=== PATIENT | female | born 1995 | race Caucasian/White ===

== ENCOUNTER 2024-12-01 09:04 | Outpatient (REF) | payer OTHER, SELFPAY ==
--- OUTSIDE RECORDS SUMMARY | 2024-12-01 09:27 | XMS_ITS ---
Author Organization [facility] Address [address] [place] [address] Care Team Providers Care Manager Clinical Research Name Role Phone Solange Kurtz Primary Care Provider Bryan Mccurdy [phone] REASON FOR VISIT humira enrollment/biosimilar ok? Medications Medication SIG (Take, Route, Frequency, Duration) Notes Start Date End Date Status Hyrimoz 40 MG/0.4ML 1 injection starting 2 weeks after you finish the starter kit Subcutaneous Every 2 weeks for 28 days All of these should be the Citrate-free variety. Thanks 06/03/2024 Active Hyrimoz-Crohns/UC Starter 80 MG/0.8ML Take 1 injection on Day #1, 1 injection on Day #2, and 1 injection on Day #15 Subcutaneous 1 injection on Day #1, Day #2, and Day #15 for 3 days All of these should be the Citrate-free variety. Thanks 06/03/2024 Active Encounters Encounter Location Date Provider Diagnosis [facility] [address] [place] [phone] 05/25/2024 Bryan Baxter Plan Of Treatment Medication Medication Name Sig Start Date Stop Date Notes Hyrimoz 40 MG/0.4ML 1 injection starting 2 weeks after you finish the starter kit Subcutaneous Every 2 weeks for 28 days 06/03/2024 All of these should be the Citrate-free variety. Thanks Hyrimoz-Crohns/UC Starter 80 MG/0.8ML Take 1 injection on Day #1, 1 injection on Day #2, and 1 injection on Day #15 Subcutaneous 1 injection on Day #1, Day #2, and Day #15 for 3 days 06/03/2024 All of these should be the Citrate-free variety. Thanks Next Appt Details Provider Name:Bryan Baxter , 05/26/2025 02:00:00 PM, [address] [place] [address], [address], [place], [address], Progress Notes * TINY WOOD PDOB:1994 (28 yo F)Acc No.[id number]:05/25/2024 Patient:?TINY WOOD P :1995???Age:28 Y???Sex:Female Address:[address] [place] [address] , [place], [address] * Refills? Start Hyrimoz-Crohns/UC Starter Solution Auto-injector, 80 MG/0.8ML, Subcutaneous, 1 Kit, Take 1 injection on Day #1, 1 injection on Day #2, and 1 injection on Day #15, 1 injection on Day #1, Day #2, and Day #15, 3 days, Refills=0 Start Hyrimoz Solution Auto-injector, 40 MG/0.4ML, Subcutaneous, 2, 1 injection starting 2 weeks after you finish the starter kit, Every 2 weeks, 28 days, Refills=11 Subjective: * Chief Complaints: * ???Humira enrollment/biosimi lar ok? * Medical History:? * Surgical History:? * Hospitalization/Major Diagno stic Procedure:? * Medications:? Objective: Assessment: Plan: * Treatment: * Procedure Codes:? * true * Date:? Generated for Julia rosales/Any/eTransmitting on:?12/01/2024 09:26 AM EDT
--- OUTSIDE RECORDS SUMMARY | 2024-12-01 09:27 | XMS_ITS ---
Author Organization [facility] Address [address] [place] [address] Care Team Providers Care Radio Officer Name Role Phone Solange Kurtz Primary Care Provider Bryan Mccurdy [phone] Allergies No Known Allergies REASON FOR VISIT crohn's Medications Medication SIG (Take, Route, Frequency, Duration) Notes Start Date End Date Status Tri-Linyah 0.18/0.215/0.25 MG-35 MCG 1 tablet Orally Once a day Active Multivitamin Adult - as directed Orally once a day Active Iron (Ferrous Sulfate) 325 (65 Fe) MG 1 tablet Orally Three times a Week for 30 day(s) Active Calcium + D Active Vitamin B12 1000 MCG 1 tablet Orally three times a week Active Hyrimoz-Crohns/UC Starter 80 MG/0.8ML Take 1 injection on Day #1, 1 injection on Day #2, and 1 injection on Day #15 Subcutaneous 1 injection on Day #1, Day #2, and Day #15 for 3 days All of these should be the Citrate-free variety. Thanks 06/03/2024 Active Hyrimoz 40 MG/0.4ML 1 injection starting 2 weeks after you finish the starter kit Subcutaneous Every 2 weeks for 28 days All of these should be the Citrate-free variety. Thanks 06/03/2024 Active Mesalamine ER 500 MG TAKE 2 CAPSULES BY MOUTH 4 TIMES A DAY 90 DAYS for 90 She has been off of this since August 2024 as it has been on backorder at the pharmacy Active Pentasa 500 MG 2 capsules Orally Four times a day 07/02/2023 Not-Taking Vital Signs Blood pressure systolic 111 mm Hg 11/23/19 25 Blood pressure diastolic 77 mm Hg 025 Height 65 in 11/22/2024 Weight 152 lbs 11/22/2024 BMI 25.29 kg/m2 11/22/2024 Encounters Encounter Location Date Provider Diagnosis [facility] [address] [place] [address] 11/22/2024 Bryan Baxter Crohn's disease of both small and large intestine with intestinal obstruction K50.812 Assessments Encounter Date Diagnosis (ICD Code) Assessment Notes Treatment Notes Treatment Clinical Notes Section Notes 11/22/2024 Crohn's disease of both small and large intestine with intestinal obstruction (ICD-10 - K50.812) Overall, Nichole appears well. She is not having any symptoms of active Crohn's disease at this time nor any symptoms such as small bowel obstructions. However, she is staying on a low residue diet given the previous history of some distention from roughage and the known small bowel disease at this point. She seems to be tolerating the Humira without any problems I did advise her to certainly continue that at the current regimen of every other week. At this point we may just keep her off the mesalamine since she has been off of it for so long already without any adverse effects I did recommend we check some blood work as described below, including a trough Humira level and antibodies. She also asked me about repeating a small bowel series to compare to the one last summer to see if there has been a change on the Humira. I advised her that I suspect there will not be any change but did recommend a CT enterography instead as I think that might be more sensitive and give better information in that regard. Nichole was in favor of that as well. She would like to have the information and testing done prior to potentially becoming . Of note, in regard to the Humira and , we did review that it is felt to be safe based on studies although obviously there are no guarantees since it is a relatively new medication. She understood this and was comfortable with continuing it. I advised her that it would be important to keep the Crohn's in remission if she does become as a flare of Crohn's during could be detrimental to the fetus. I have given her an appointment to see me again toward the end of the year but did advise her to certainly call prior to that if she has any problems or questions I can be of assistance with. Nichole was comfortable with this plan. Thank you again for allowing me to participate in Nichole's care. I shall continue to keep you advised of her progress. Plan Of Treatment Pending Test Test Name Order Date CHEM 7 PROFILE 11/22/2024 LIVER PROFILE 11/22/2024 IRON + IBC (FE) 11/22/2024 CRP 11/22/2024 CBC w DIFF 11/22/2024 SED RATE (ESR) 11/22/2024 Ferritin 11/22/2024 Vitamin B12 and Folate 11/22/2024 [facility] ANSER ADA 11/22/2024 CT enterography 11/22/2024 Next Appt Details Follow Up: 6 Months, Reason: Provider Name:Bryan Baxter , 05/26/2025 02:00:00 PM, [address] [place] [address], [address], [address], Progress Notes * NINA NICHOLE PDOB:1994 (29 yo F)Acc No.[id number]:11/22/2024 Progress Notes Patient:?NICHOLE WOOD P Provider:?Bryan Baxter MD :1995???Age:29 Y???Sex:Female D ate:11/22/2024 Address:[address] [place] [address] Pcp:Solange Kurtz Subjective: * Chief Complaints: * ???1. Crohn's. * HPI: ???incontinence:? I saw Nichole in follow-up today in regard to her underlying history of Crohn's disease with associated small bowel disease and stricturing. I last saw Nichole in May 2024. She started her Humira in June 2024 and presently is using 1 injection every other week. She had been on Pentasa but has been off of that for about 2 months due to it being on backorder at the pharmacy. She has not noticed any worsening of her condition without it. She describes that she is eating comfortably but has been continuing to stay away from roughage and high residue foods as previously they have been causing some distention which we felt was in relation to her small bowel inflammation and narrowing from the Crohn's. She feels very well otherwise. She denies any abdominal pain, abdominal distention, nausea, nor vomiting. Her bowel movements have been regular and without any signs of bleeding. She denies any significant heartburn or dysphagia. She has not had any blood work since she started the Humira. She denies any rashes, red or swollen joints, eye problems, fevers, or any other signs of infection on the Humira. She does advise me that she and her are thinking about becoming . She did speak with her [employer] about the Humira and describes that they did not have any problem with her using that during her . * Medical History:?Denies KS,D M,CVA,Lung disease,renal disease, Crohn's ileocolitis--she underwent a colonoscopy in June 2013 with the finding of a relatively mild and patchy colitis from the sigmoid colon to the hepatic flexure--biopsies revealed chronic colitis, with some granuloma noted in the ascending colon-biopsies from the rectum were normal--the terminal ileum appeared normal on both the colonoscopy and a small bowel series--she has been on mesalamine agents since the fall with good relief, Iron deficiency with an iron saturation of 5% and ferritin of 4 in December of 2022, although her hemoglobin was normal at that time, Colonoscopy in June of 2023 revealed active ileitis and some relative stenosis of the ileocecal valve. The entire colon and rectum appeared grossly normal and biopsies throughout the colon and rectum were negative for dysplasia. She was feeling fine at that time other than some intolerance to high residue food like raw vegetables, but was not having any clinical signs of obstruction. She was switched from balsalazide to Pentasa, and was also given a course of budesonide., Small bowel series in January of 2024 described a short segment of high-grade stricture in the terminal ileum proximal to the ileocecal valve with some Crohn's disease appearing proximal to that as well in the terminal ileum; there also appeared to be some Crohn's disease involving a section of the ileum more proximal as well. There was no evidence of any obstruction.. * Surgical History:?Denies Pas t Surgical History. * Family History:?Father: yusra flynn?Mother: alive, ulcerative proctitis.? Mom has ulcerative proctitis No colorectal cancer in the family. * Social History:?Tobacco Use:?Tobacco Use/Smoking?Are you a: nonsmoker.?Drugs/Alcohol:?Alcohol Screen?Points: 1, Interpretation: Negative.?Miscellaneous:?Living with: Family--her mother is a nurse at [employer] [facility] [place].. Marital status: as of 04/03/2023. Occupation: Graduated from [employer] in 02/2018. 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 ???Nonsmoker; no sig alcohol. * Medications:?Taking Calcium + D , Taking Vitamin B12 1000 MCG Tablet Extended Release 1 tablet Orally three times a week , Taking Iron (Ferrous Sulfate) 325 (65 Fe) MG Tablet 1 tablet Orally Three times a Week , Taking Tri-Linyah 0.18/0.215/0.25 MG-35 MCG Tablet 1 tablet Orally Once a day , Taking Multivitamin Adult - Tablet as directed Orally once a day , Taking Hyrimoz-Crohns/UC Starter 80 MG/0.8ML Solution Auto-injector Take 1 injection on Day #1, 1 injection on Day #2, and 1 injection on Day #15 Subcutaneous 1 injection on Day #1, Day #2, and Day #15 , Notes to Pharmacist: All of these should be the Citrate-free variety. Thanks, Taking Hyrimoz 40 MG/0.4ML Solution Auto-injector 1 injection starting 2 weeks after you finish the starter kit Subcutaneous Every 2 weeks , Notes to Pharmacist: All of these should be the Citrate-free variety. Thanks, Taking Mesalamine ER 500 MG Capsule Extended Release TAKE 2 CAPSULES BY MOUTH 4 TIMES A DAY 90 DAYS , Notes to Pharmacist: She has been off of this since August 2024 as it has been on backorder at the pharmacy, Not-Taking/PRN Pentasa 500 MG Capsule Extended Release 2 capsules Orally Four times a day , Medication List reviewed and reconciled with the patient * Allergies:?N.K.D.A. Objective: * Vitals:?Wt:152lbs, Ht: 65 in , BMI:25.29Index, BP:111/77mm Hg, Wt-k.95. Assessment: * Assessment: 1.?Crohn's disease of both s mall and large intestine with intestinal obstruction - K50.812 (Primary)??? Overall, Nichole appears wel l. She is not having any symptoms of active Crohn's disease at this time nor any symptoms such as small bowel obstructions. However, she is staying on a low residue diet given the previous history of some distention from roughage and the known small bowel disease at this point. She seems to be tolerating the Humira without any problems I did advise her to certainly continue that at the current regimen of every other week. At this point we may just keep her off the mesalamine since she has been off of it for so long already without any adverse effects I did recommend we check some blood work as described below, including a trough Humira level and antibodies. She also asked me about repeating a small bowel series to compare to the one last summer to see if there has been a change on the Humira. I advised her that I suspect there will not be any change but did recommend a CT enterography instead as I think that might be more sensitive and give better information in that regard. Nichole was in favor of that as well. She would like to have the information and testing done prior to potentially becoming . Of note, in regard to the Humira and , we did review that it is felt to be safe based on studies although obviously there are no guarantees since it is a relatively new medication. She understood this and was comfortable with continuing it. I advised her that it would be important to keep the Crohn's in remission if she does become as a flare of Crohn's during could be detrimental to the fetus. I have given her an appointment to see me again toward the end of the year but did advise her to certainly call prior to that if she has any problems or questions I can be of assistance with. Nichole was comfortable with this plan. Thank you again for allowing me to participate in Nichole's care. I shall continue to keep you advised of her progress. Plan: * Treatment: ?Imaging: CT enterography* compare to 2023 SB series11/10 10/04 approval will follow, pt given lab [facility] 11/22/2024 01:48:17 PM EDT > order faxed w/ approval for scheduling * * Follow Up:?6 Months * * The named appointment provid er may or may not be the originator of this progress note, and it is not deemed complete until electronically signed by the appointment provider. Sign off status: Pending * Provider:?Bryan Baxter MD Date:? 025 Generated for Julia rosales/Any/Magaly on:?12/01/2024 09:26 AM EDT History and Physical Notes * HPI (History of Present Illness) Category Sub-Category Detail Notes Category Not es incontinence I saw Nichole in follow-up today in regard to her underlying history of Crohn's disease with associated small bowel disease and stricturing. I last saw Nichole in May 2024. She started her Humira in June 2024 and presently is using 1 injection every other week. She had been on Pentasa but has been off of that for about 2 months due to it being on backorder at the pharmacy. She has not noticed any worsening of her condition without it. She describes that she is eating comfortably but has been continuing to stay away from roughage and high residue foods as previously they have been causing some distention which we felt was in relation to her small bowel inflammation and narrowing from the Crohn's. She feels very well otherwise. She denies any abdominal pain, abdominal distention, nausea, nor vomiting. Her bowel movements have been regular and without any signs of bleeding. She denies any significant heartburn or dysphagia. She has not had any blood work since she started the Humira. She denies any rashes, red or swollen joints, eye problems, fevers, or any other signs of infection on the Humira. She does advise me that she and her are thinking about becoming . She did speak with her [employer] about the Humira and describes that they did not have any problem with her using that during her .
--- OUTSIDE RECORDS SUMMARY | 2024-12-01 09:27 | XMS_ITS | Patient Health Record ---
Author Organization [facility] Address [address] [place] [address] Care Team Providers Care Medication Administration Professional Name Role Phone Solange Kurtz Primary Care Provider Bryan Mccurdy [phone] Allergies No Known Allergies Results Component Value Reference Range Notes FL upper GI w air w SBFT Reviewed date:06/01/2024 12:33:19 AM Interpretation: Performing Lab: Notes/Report: [address] [address] Fluoroscopy Report Signed Patient: Nichole Ocasio MR#: [id number] : 1995 Acct:[id number] Age/Sex: 28 / F ADM Date: 01/13/24 Loc: HO.XRAY Attending Dr: Bryan Baxter MD Ordering Physician: Bryan Baxter MD Date of Service: 01/13/24 Procedure(s): FL upper GI w air w SBFT Accession Number(s): [id number] cc: Solange Kurtz MD; Bryan Baxter MD EXAMINATION: XR UPPER GI SERIES WITH SMALL BOWEL EXAMINATION: XR FLUOROSCOPY UPPER GI WITH AIR CLINICAL INFORMATION: Crohn's disease. Narrowing of the ileocecal valve on colonoscopy. COMPARISON: None TECHNIQUE: Fluoroscopic air contrast upper GI examination was performed utilizing standard techniques with thin and thick barium and effervescent granules. Numerous spot images were obtained. FINDINGS: Upper GI: Dual and single contrast images of the esophagus demonstrate normal caliber, contour, and mucosal pattern. No evidence of stricture, mass, or ulcerations identified. Esophageal peristalsis was normal. No evidence of hiatus hernia identified. No significant gastroesophageal reflux was seen during the course of the examination and on reflux views. Dual contrast and single contrast images of the stomach demonstrated a normal contour. There are a few oval and round filling defects along the greater curve in the proximal antrum, suggesting hyperplastic polyps. There is a mildly thickened appearance of the gastric rugal folds that may suggest gastritis. Antral folds also appear mildly thickened. No masses or ulcerations are seen. Contrast freely passed into the gastric antrum and duodenal bulb without delay. Single and air-contrast images of the duodenal bulb demonstrate no abnormality. No malrotation. The duodenal sweep has a normal appearance, course, and mucosal fold appearance. Small Bowel Series: Wire Brusher view demonstrates no abnormally dilated loops of bowel. There is a normal amount of fecal material in the colon which is nondilated. No organomegaly. No abnormal calcifications. SI joints appear grossly normal as does the lumbar spine and osseous structures. Post contrast small bowel series demonstrates normal duodenum, and normal appearance of the jejunum. Within the mid small bowel there is a transverse loop of bowel with probable mild cobblestoning and several antimesenteric diverticula (RF 1-14, image 45). The terminal ileum demonstrates irregular mucosal appearance and a short segment high-grade stricture into the ileocecal valve (RF 1-14, image 39; RF 1-15, image 79; RF 1-2, image 11) Contrast is observed in the right colon after 30 minutes. FLUOROSCOPY TIME: 4 minutes 40 seconds Number of Spot Images: 11 Number of Cine: 14 DOSE AREA PRODUCT: 2592 uGy-m2 (microgray-meter squared) FL/FL upper GI w air w SBFT IMPRESSION: 1. Mildly thickened appearance of the gastric rugal folds, which may suggest gastritis. A few hyperplastic polyps suspected as well. 2. Abnormal small bowel series. Suspect short segment high-grade stricture in the most terminal ileum into the ileocecal valve. The mucosa immediately before this appears irregular (possible active Crohn's) with a less severe suspected stricture. 3. A transverse loop of mid small bowel/ileum demonstrates numerous antimesenteric diverticula and irregular mucosal pattern with possible mild cobblestoning. Cannot exclude active Crohn's disease. 4. Contrast is observed in the right colon after 30 minutes. This procedure was performed by Aneudy Olivares PA-C, and supervised by Dr. Oliver Dictated By: Aneudy Olivares Signed By: <Electronically signed by Aneudy Olivares in OV> 01/19/241619 <Electronically signed by Delfino Oliver MD in OV> 01/19/241622 DD/ 4 TD/TT: Sample Tester: [address] [address] Fluoroscopy Report Signed Patient: Bijan Ocasio MR#: [id number] : 1995 Acct:[id number] Age/Sex: 28 / F ADM Date: 01/13/24 Loc: HO.XRAY Attending Dr: Bryan Baxter MD Ordering Physician: Bryan Baxter MD Date of Service: 01/13/24 Procedure(s): FL upp er GI w air w SBFT Accession Number(s): [id number] cc: Solange Kurtz MD; Bryan Baxter MD EXAMINATION: XR UPPER GI SERIES W ITH SMALL BOWEL EXAMINATION: XR FLUOROSCOPY UPPER GI WITH AIR CLINICAL INFORMATION: Crohn's disease. Humphrey rowing of the ileocecal valve on colonoscopy. COMPARISON: None TECHNIQUE: Fluoroscopic air con trast upper GI examination was performed utilizing standard techniques with thin and thick barium and effervescent granules. Numerous s pot images were obtained. FINDINGS: Upper GI: Dual and single cont rast images of the esophagus demonstrate normal caliber, contour, an d mucosal pattern. No evidence of stricture, mass, or ulcerations ident ified. Esophageal peristalsis was normal. No evidence of hiatu s hernia identified. No significant gastroesophageal ref lux was seen during the course of the examination and on reflux views. Dual contrast and si ngle contrast images of the stomach demonstrated a normal contour. Ther e are a few oval and round filling defects along the greater curve in the proximal antrum, suggesting hyperplastic polyps. There is a m ildly thickened appearance of the gastric rugal folds that may sugge st gastritis. Antral folds also appear mildly thickened. No masses or ulcerations are seen. Contrast freely passed into the gastric ant rum and duodenal bulb without delay. Single and air-contr ast images of the duodenal bulb demonstrate no abnormality. No malr otation. The duodenal sweep has a normal appearance, course, and mucosal fold appearance. Small Bowel Series: Wire Brusher view demonstra denisse no abnormally dilated loops of bowel. There is a normal amount of f ecal material in the colon which is nondilated. No organomegaly. No abn ormal calcifications. SI joints appear grossly normal as does the l umbar spine and osseous structures. Post contrast small bowel series demonstrates normal duodenum, and normal appearance of the jejunum. Within the mid small bowel there is a transverse loop of b owel with probable mild cobblestoning and several antimesenteric diver ticula (RF 1-14, image 45). The terminal ileum d emonstrates irregular mucosal appearance and a short segment high-g rade stricture into the ileocecal valve (RF 1-14, image 39; RF 1-15, i mage 79; RF 1-2, image 11) Contrast is observed in the right colon after 30 minutes. FLUOROSCOPY TIME: 4 minutes 40 seconds Number of Spot Images: 11 Number of Cine: 14 DOSE AREA PRODUCT: 2592 uGy-m2 (microgr ay-meter squared) F L/FL upper GI w air w SBFT IMPRESSION: 1. Mildly thickened appearance of the gastric rugal folds, which may suggest gastritis. A few hyperplastic polyps suspected as well. 2. Abnormal small natasha wel series. Suspect short segment high-grade stricture in the mos t terminal ileum into the ileocecal valve. The mucosa immediately b efore this appears irregular (possible active Crohn's) with a less severe suspected stricture. 3. A transverse loop of mid small bowel/ileum demonstrates numerous antimesenteric diver ticula and irregular mucosal pattern with possible mild cobblestoning. Cannot exclude active Crohn's disease. 4. Contrast is obser angelia in the right colon after 30 minutes. This procedure was p erformed by Aneudy Olivares PA-C, and supervised by Dr. Oliver Dictated By: Aneudy Olivares Signed By: <Electron ically signed by Aneudy Olivares in [place]> 01/19/241619 <Electronically sign ed by Delfino Oliver MD in OV> 01/19/241622 DD/ 4 TD/TT: Sample Tester: Reason For Referral No Information Medications Medication SIG (Take, Route, Frequency, Duration) Notes Start Date End Date Status Hyrimoz-Crohns/UC Starter 80 MG/0.8ML Take 1 injection [...] be the Citrate-free variety. Thanks 06/03/2024 Active Tri-Linyah 0.18/0.215/0.25 MG-35 MCG 1 tablet Orally Once a day Active Multivitamin Adult - as directed Orally once a day Active Iron (Ferrous Sulfate) 325 (65 Fe) MG 1 tablet Orally Three times a Week for 30 day(s) Active Calcium + D Active Vitamin B12 1000 MCG 1 tablet Orally three times a week Active Mesalamine ER 500 MG TAKE 2 CAPSULES BY MOUTH 4 TIMES A DAY 90 DAYS for 90 She has been off of this since August 2024 as it has been on backorder at the pharmacy Active Pentasa 500 MG 2 capsules Orally Four times a day 07/02/2023 Not-Taking Immunizations Vaccine Route Administration Date Status Comme nts Influenza Unknown 04/12/2018 Administered Influenza Unknown 04/20/2019 Administered Influenza Unknown 04/12/2020 Administered Influenza Unknown 03/13/2021 Administered Influenza Unknown 04/26/2024 Administered Problems Problem Type SNOMED Code ICD Code Onset Dates Problem Status W/U Status Risk Notes Problem 463074517 Colon cancer screening (Z12.11) Active confirmed Problem Crohns disease o f both small and large intestine without complication (K50.80) Active confirmed Problem 34944833 Crohns colitis, without complications (K50.10) Active confirmed Problem 24829974 Crohn's disease of both small and large intestine with intestinal obstruction (K50.812) Active confirmed Vital Signs Temperature 97.8 degrees Fahrenheit 05/20/2024 Blood pressure diastolic 77 mm Hg 11/22/2024 Height 65 in 11/22/2024 Blood pressure systolic 111 mm Hg 11/22/2024 Weight 152 lbs 11/22/2024 BMI 25.29 kg/m2 11/22/2024 Encounters Encounter Location Date Provider Diagnosis [facility] [address] [place] [address] 11/22/2024 Bryan Baxter Crohn's disease of both small and large intestine with intestinal obstruction K50.812 [facility] [address] [place] [address] 05/20/2024 Bryan Baxter Crohns disease of natasha th small and large intestine without complication K50.80 [facility] [address] [place] [address] 01/20/2024 Bryan Baxter [facility] [address] [place] [address] 05/25/2024 Bryan Baxter [facility] [address] [place] [address] 09/01/2024 Bryan Baxter Assessments Encounter Date Diagnosis (ICD Code) Assessment [...] to keep you advised of her progress. 05/20/2024 Crohns disease of both small and large intestine without complication (ICD-10 - K50.80) We will start the Humira Stay on a low roughage diet Overall, Nichole appears well. While her previous colonoscopy and small bowel series clearly shows some active Crohn's disease and an associated stricture in the distal small bowel, she appears quite well from a clinical standpoint and does not have any significant symptoms as long as she stays on a relatively low residue diet. She is tolerating her Pentasa and I did advise her to continue that. She had been placed on a course of budesonide earlier in the year but did not think that made any difference in regard to her ability to tolerate a higher residue diet. The budesonide was subsequently discontinued. We did review the findings on her small bowel series in detail and my concern that her Crohn's disease seems to be quite aggressive based on the colonoscopy and small bowel series findings. As such, I advised her that I think itwould be reasonable that she go on a biologic agent to try to prevent progression and potential further complications of Crohn's disease such as fistulous disease, obstruction, and/or abscess formation. I advised her that I would like to put her on a trial of Humira. Given the fact that she is recently and will be thinking about having children, she and I both think that will be the best biologic agent to start with as it does have the benefit of having been around for a long time and seems to have a good safety profile in regard to . I did advise her that she should review this with her [facility] doctor at an upcoming appointment, as well to get their thoughts on that in relation to potential down the road. She has already had a negative hepatitis B antigen and tuberculosis test within the past year so I don't think that needs to be repeated. We did discuss potential adverse effects of biologic agents such as increased risk of infection. She has done a lot of reading on these agents as well. I advised her to continue her Pentasa, as well as a low roughage diet. We did discuss that once she starts the Humira we may want to eventually repeat a small bowel series at some point in the future to assess any improvement on the biologic agent. If things are stable I will plan to see Nichole in 6 months for a followup visit. I did advise her to contact me in the interim if she has any problems or questions I can be of assistance with. Nichole was comfortable with this plan. Thank you again for allowing me to participate in Nichole's care. I shall continue to keep you advised of her progress. Plan Of Treatment Pending Test Test Name Order Date CHEM 7 PROFILE 11/22/2024 CHEM 7 PROFILE 09/25/2020 CHEM 7 PROFILE 07/02/2023 LIVER PROFILE 11/22/2024 LIVER PROFILE 09/25/2020 LIVER PROFILE 07/02/2023 IRON + IBC (FE) 11/22/2024 IRON + IBC (FE) 07/02/2023 CRP 07/02/2023 CRP 11/22/2024 VITAMIN B12 AND FOLATE 07/02/2023 CBC w DIFF 11/22/2024 CBC w DIFF 07/02/2023 CBC w DIFF 09/25/2020 SED RATE (ESR) 11/22/2024 SED RATE (ESR) 07/02/2023 HEPATITIS B PROFILE 07/02/2023 XR GI SMALL BOWEL SERIES 11/19/2023 XR GI SMALL BOWEL SERIES 07/15/2013 Ferritin 07/02/2023 Ferritin 11/22/2024 Vitamin B12 and Folate 11/22/2024 [facility] TPMT Enzyme 07/02/2023 [facility] TPMT Genetics 07/02/2023 Prometheus ANSER ADA 11/22/2024 T Spot TB 07/02/2023 CT enterography 11/22/2024 MR Enterography 07/02/2023 Future Test Test Name Order Date COLONOSCOPY 04/22/2013 COLONOSCOPY 03/17/2023 Next Appt Details Provider Name:Bryan Baxter , 05/26/2025 02:00:00 PM, [address] [place] [address], [address], [place], [address], Insurance Providers Payer Name Payer Address Payer Phone Subscriber Number Group Number Insured Name Patient Relationship to Insured Coverage Start Date Coverage End Date [facility] [address] [place] [phone] [id number] NINAN[place]HOLE Self - patient is the insured Medical (General) History Medical History History ICD Code Denies [place],DM,CVA,Lung disease,renal dise ase Crohn's ileocolitis--she und erwent a colonoscopy in June 2013 with the finding of a relatively mild and patchy colitis from the sigmoid colon to the hepatic flexure--biopsies revealed chronic colitis, with some granuloma noted in the ascending colon-biopsies from the rectum were normal--the terminal ileum appeared normal on both the colonoscopy and a small bowel series--she has been on mesalamine agents since the fall with good relief Iron deficiency with an iron saturation of 5% and ferritin of 4 in December of 2022, although her hemoglobin was normal at that time Colonoscopy in June revealed active ileitis and some relative stenosis [...] and was also given a course of budesonide. Small bowel series in January described a short segment of high-grade stricture in the terminal ileum proximal to the ileocecal valve with some Crohn's disease appearing proximal to that as well in the terminal ileum; there also appeared to be some Crohn's disease involving a section of the ileum more proximal as well. There was no evidence of any obstruction. Surgical History Surgery Date(Month/Year)
--- OUTSIDE RECORDS SUMMARY | 2024-12-01 09:27 | XMS_ITS ---
Author Organization [facility] Address [address] [place] [address] Care Team Providers Care Car Body Designer Name Role Phone Solange Kurtz Primary Care Provider Bryan Mccurdy [phone] REASON FOR VISIT mesalamine Encounters Encounter Location Date Provider Diagnosis [facility] [address] [place] [address] 09/01/2024 Bryan Baxter Plan Of Treatment Next Appt Details Provider Name:Bryan Baxter , 05/26/2025 02:00:00 PM, [address], [address], [place], [address], Progress Notes * TINY WOOD PDOB:1994 (29 yo F)Acc No.[id number]:09/01/2024 Patient:?TINY WOOD :1995???Age:29 Y???Sex:Female Address:[address] [place] [address], [address] * true * Date:? Generated for Natei bobby/Any/eTransmitting on:?12/01/2024 09:26 AM EDT
[2024-12-01 09:30] LABS: MANUAL DIFF FLAG NO
[2024-12-01 10:06] LABS: Basophils Absolute Auto 0.1 X10*3/uL (0.0-0.2); Eosinophils Absolute Auto 1.3 X10*3/uL (0.0-0.4); Eosinophils Percent Auto 15.3 % (0-4); Hematocrit 45.9 % (37.0-47.0); Hemoglobin 14.9 g/dl (12.0-16.0); Imm Gran Abs Auto 0.02 X10*3/uL (0.00-0.03); Imm Gran Pct Auto 0.2 % (0.0-0.4); Lymphocytes Absolute Auto 3.1 X10*3/uL (1.2-4.9); Lymphocytes Percent Auto 37.3 % (20-40); Mean Corpuscular HGB Conc 32.5 g/dl (31.0-35.0); Mean Corpuscular Hemoglobin 30.7 pg (27.0-33.0); Mean Corpuscular Volume 94.4 fL (80.0-98.0); Mean Platelet Volume 9.1 fL (9.4-12.3); Monocytes Absolute Auto 0.6 X10*3/uL (0.1-1.2); Monocytes Percent Auto 6.9 % (2-11); Neutrophils Absolute Auto 3.2 x10*3/uL (2.0-8.3); Neutrophils Percent Auto 39.3 % (45-73); Platelet Count 295 X10*3/uL (160-400); Red Blood Count 4.86 X10*6/uL (4.20-5.50); Red Cell Distribution Width 12.1 % (11.0-16.0); White Blood Count 8.2 X10*3/uL (4.8-10.8)
[2024-12-01 10:41] LABS: Erythrocyte Sedimentation Rate 2 MM/HR (0-20)
[2024-12-01 12:01] LABS: Vitamin B12 393 pg/mL (200-900)
[2024-12-01 12:05] LABS: Alanine Aminotransferase 19 U/L (0-31); Albumin Level 3.9 g/dL (3.5-5.0); Alkaline Phosphatase 56 U/L (39-117); Anion Gap 11 (12-20); Aspartate Amino Transferase 23 U/L (5-31); Bilirubin Direct 0.2 mg/dL (0.0-0.5); Bilirubin Total 0.7 mg/dL (0.0-1.0); Blood Urea Nitrogen 14 mg/dL (9-16); C Reactive Protein 0.28 mg/dL (< or = 0.50); Calcium 9.2 mg/dL (8.4-10.2); Carbon Dioxide 28 mmol/L (22-29); Chloride 106 mmol/L (96-108); Estimated Glomerular Filt Rate > 60; Ferritin 84 ng/mL (10-122); Glucose Random 90 mg/dL (60-115); Iron 197 mcg/dL (30-160); Percent Iron Saturation 61 % (15-50); Potassium 4.5 mmol/L (3.3-5.1); Sodium 140 mmol/L (135-145); Total Iron Binding Capacity 324 mcg/dL (228-428); Total Protein 6.6 g/dL (6.5-8.0); Unsaturated Iron Binding 127 ug/dL
== END 2024-12-01 09:05 | disposition home or self-care (01) ==
LOC: HO.LAB 09:04
PROVIDERS: PCP Internal Medicine; Visit Provider Internal Medicine
DX: K50.812 Crohn's disease of both small and large intestine with intestinal obstruction (principal)
CPT/HCPCS: 36415; 80048; 80076; 80145; 82542; 82607; 82728; 83540; 85025; 85652; 86140